=== PATIENT | female | born 1990 | race Caucasian/White ===

== ENCOUNTER 2018-06-10 12:18 | Inpatient (IN) | payer OTHER ==
--- OUTSIDE RECORDS SUMMARY | 2018-06-10 14:42 | XMS REPORT ---
:1990 Author Organization [employer] Care Team Providers Name Role Phone Ellis Watkins Provider Role Unavailable Allergies No Known Allergies Problems Problem Type Condition Code Onset Dates Condition Status Problem Encounter for supervision of Z34.91 Active low-risk in first trimester Problem Fragile X syndrome in heterozygous Q87.89 Active female Problem Nausea and vomiting during O21.9 Active Problem Supervision of high risk O09.93 Active in third trimester Problem Gestational diabetes mellitus (GDM) O24.415 Active in third trimester controlled on oral hypoglycemic drug Problem Edema during in third O12.03 Active trimester Problem 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 Problem Encounter for supervision of other Z34.82 Active normal in second trimester Problem Uterine size-date discrepancy in O26.843 Active third trimester Problem History of tobacco use Z87.891 Active Assessment Fragile X syndrome in heterozygous Q87.89 Active female Assessment Gestational diabetes mellitus (GDM) O24.415 Active in third trimester controlled on oral hypoglycemic drug Assessment Supervision of high risk O09.93 Active in third trimester Assessment History of tobacco use Z87.891 Active Assessment Uterine size-date discrepancy in O26.843 Active third trimester Problem Amenorrhea N91.2 Active Medications Medication Code Code Instructions Start End Status Dosage System Date Date Vitafol [facility] 61186379080 3.33-0.333-34.8 December 12, Active 3 tablets Gummies MG Orally Once a 2018 day Diclegis [facility] 24118649400 10-10 MG Orally December 12, Active 2 tablets Once a day 2018 at bedtime on an empty stomach GlyBURIDE [facility] [id number] 2.5 MG Orally Active 1 tablet Once a day at bedtime Results No Known Results Summary Purpose eClinicalWorks Submission
--- OUTSIDE RECORDS SUMMARY | 2018-06-10 14:42 | XMS REPORT ---
:1990 Author Organization [employer] Care Team Providers Name Role Phone Ellis Watkins Provider Role Unavailable Allergies No Known Allergies Problems Problem Type Condition Code Onset Dates Condition Status Problem Encounter for supervision of Z34.91 Active low-risk in first trimester Problem Fragile X syndrome in heterozygous Q87.89 Active female Problem Nausea and vomiting during O21.9 Active Problem Amenorrhea N91.2 Active Problem Supervision of high risk O09.93 [...] Problem History of tobacco use Z87.891 Active Medications No Known Medications Results No Known Results Summary Purpose [employer]Works Submission
--- OUTSIDE RECORDS SUMMARY | 2018-06-10 14:43 | XMS REPORT ---
:1990 Author Organization [employer] Care Team Providers Name Role Phone Ellis Watkins Provider Role Unavailable Allergies No Known Allergies Problems Problem Type Condition Code Onset Dates Condition Status Problem Nausea and vomiting during O21.9 Active Problem Encounter for supervision of other Z34.82 Active normal in second trimester Problem Fragile X syndrome in heterozygous Q87.89 Active female Problem Edema during in third O12.03 Active trimester Problem Supervision of high risk O09.93 Active in third trimester Problem Need for Tdap vaccination Z23 Active Problem History of tobacco use Z87.891 Active Problem 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 Problem Gestational diabetes mellitus (GDM) O24.415 Active in third trimester controlled on oral hypoglycemic drug Problem Uterine size-date discrepancy in O26.843 Active third trimester Assessment History of tobacco use Z87.891 Active Assessment Uterine size-date discrepancy in O26.843 Active third trimester Assessment Fragile X syndrome in heterozygous Q87.89 Active female Assessment Need for Tdap vaccination Z23 Active Assessment Gestational diabetes mellitus (GDM) O24.415 Active in third trimester controlled on oral hypoglycemic drug Problem Encounter for supervision of Z34.91 Active low-risk in first trimester Assessment Supervision of high risk O09.93 Active in third trimester Problem Amenorrhea N91.2 Active Medications Medication Code Code Instructions Start End Status Dosage System Date Date Diclegis [facility] [id number] 10-10 MG Orally December 12, Active 2 tablets Once a day 2018 at bedtime on an empty stomach GlyBURIDE [facility] 53678955218 2.5 MG Orally Active 1 tablet Once a day at bedtime Vitafol [facility] [id number] 3.33-0.333-34.8 December 12, Active 3 tablets Gummies MG Orally Once a 2018 day Results No Known Results Immunizations Vaccine Administration Date TDAP > 7 Years-Adacel May 30, 2018 Summary Purpose eClinicalWorks Submission
--- OUTSIDE RECORDS SUMMARY | 2018-06-10 14:43 | XMS REPORT ---
[...] syndrome in heterozygous Q87.89 Active female Assessment History of tobacco use Z87.891 Active Assessment Supervision of high risk O09.93 Active in third trimester Assessment Uterine size-date discrepancy in O26.843 Active third trimester Problem Encounter for supervision of Z34.91 Active low-risk in first trimester Assessment Gestational diabetes mellitus (GDM) O24.415 Active in third trimester controlled on oral hypoglycemic drug Problem Amenorrhea N91.2 Active Medications Medication Code Code Instructions Start End Status Dosage System Date Date Vitafol [facility] [id number] 3.33-0.333-34.8 December 12, Active 3 tablets Gummies MG Orally Once a 2018 day GlyBURIDE [facility] [id number] 2.5 MG Orally Active 1 tablet Once a day at bedtime Diclegis [facility] [id number] 10-10 MG Orally December 12, Active 2 tablets Once a day 2018 at bedtime on an empty stomach Results No Known Results Summary Purpose eClinicalWorks Submission
[2018-06-10] MEDS ORDERED: BUTORPHANOL 1 MG/ML INJ IV PRN (14:45)
[2018-06-10] MEDS ORDERED: Ringers Lactate 1,000 ML IV PRN (14:45)
[2018-06-10] MEDS ORDERED: METHYLERGONOVINE 0.2MG/ML AMP IM PRN (14:45)
[2018-06-10] MEDS ORDERED: CARBOPROST TROME 250 MCG/ML IM PRN (14:45)
[2018-06-10] MEDS ORDERED: OXYTOCIN/LR 20 UNIT/1,000 ML BAG IV SCH (15:00)
[2018-06-10] MEDS ORDERED: Ringers Lactate 1,000 ML IV SCH (15:00)
[2018-06-10 15:41] VITALS: BMI 20.2
[2018-06-10 15:42] LABS: RPR Titer ND
[2018-06-10 15:53] LABS: Absolute Lymphocytes (CBC) 1.4 K/uL (0.7-4.9); Absolute Monocytes 0.5 K/uL (0.1-1.3); Absolute Neutrophil 6.7 K/uL (1.8-8.0); Basophils % 0.2 % (0-1.3); Eosinophils % 0.1 % (0-4.4); Hematocrit 25.2 % (36.0-45.0); Lymphocytes % 15.8 % (15.3-44.8); MCH 27.8 pg (27.0-35.0); MPV 6.9 fL (7.6-11.3); Monocytes % 6.3 % (3.3-12.3); RBC Red Blood Cell Count 3.07 M/uL (3.86-4.86)
[2018-06-10 16:01] LABS: Urine Appearance CLOUDY; Urine Bilirubin NEGATIVE (NEG); Urine Blood NEGATIVE (NEG); Urine Color YELLOW; Urine Glucose NEGATIVE (NEG); Urine Protein NEGATIVE (NEG); Urine Urobilinogen 0.2 mg/dL (0.2-1.0)
[2018-06-10 16:05] LABS: Urine Microscopic Reflex ORDER UMIC
[2018-06-10] MEDS ORDERED: ROPIVACAINE HCL 100 ML IV PRN (16:06)
[2018-06-10] MEDS ORDERED: FENTANYL CITR 100 MCG/2 ML IV ONE (16:06)
[2018-06-10] MEDS ORDERED: ROPIVACAINE HCL 0.2% 20ML AMP IV ONE (16:10)
[2018-06-10 16:15] LABS: Urine Bacteria >50 /HPF (<20); Urine Culture Reflex Order REFLEXED; Urine RBC <5 /HPF (NONE SEEN)
[2018-06-10] MEDS ORDERED: 0.2% ROPIVACAINE (200 MG/100 ML) BAG IV ONE (17:00)
[2018-06-10] MEDS ORDERED: INFLUENZA VACCINE (for 3y+) 0.5 ML DOSE IMVAC ONE (17:00)
[2018-06-10] MEDS ORDERED: ONDANSETRON 4 MG (ODT) TAB PO PRN (20:46)
[2018-06-10] MEDS ORDERED: Oxycodone HCl/Acetaminophen 1 TAB TAB PO PRN (20:46)
[2018-06-10] MEDS ORDERED: ACETAMINOPHEN 500 MG TAB PO PRN (20:46)
[2018-06-10] MEDS ORDERED: IBUPROFEN 200 MG TAB PO PRN (20:46)
[2018-06-10] MEDS ORDERED: METHYLERGONOVINE 0.2 MG TAB PO PRN (20:46)
[2018-06-10] MEDS ORDERED: DOCUSATE NA/SENNA CONC 1 TAB PO PRN (20:46)
[2018-06-10] MEDS ORDERED: BISACODYL 10 MG RECTAL SUPP RECT PRN (20:46)
[2018-06-10] MEDS ORDERED: METOCLOPRAMIDE 10 MG/2mL INJ IV PRN (20:49)
--- NOTE | 2018-06-10 20:51 | P.OP ---
Date of Service: 06/10/18 Findings and Operative Technique Patient delivered a viable female in cephalic presentation on 06/10/18 at 20:30 via vacuum assisted vaginal delivery due to bradycardia and poor maternal effort. Infant was delivered in OA presentation over a midline episiotomy. Once was delivered nose and mouth were suctioned with a suction bulb cord was clamped and cut and infant was placed on mother's abdomen for skin to skin bonding. Attention was then turned to the placenta which was delivered with gentle traction at 20:31. Placenta was examined and noted to be intact. Attention was then turned to the midline episiotomy. This was repaired with a 2 0 Vicryl in usual fashion noted to be second-degree laceration. Fundus was found to be firm estimated blood loss was 200 cc. Both mom and baby are doing well 9 and 9. Weight was 5 lb 9 oz. 1st stage of labor was 2 hr and 53 min. 2nd stage was 20 min.
[2018-06-11] MEDS: Oxycodone HCl/Acetaminophen 1 TAB TAB PO PRN ×2 (00:30→07:20)
--- NOTE | 2018-06-11 03:34 | HP ---
Date of Admission: 06/10/2018 History Of Present Illness: Umu is 28-year-old, 2, para 1-0-0-1 at 38 weeks' gestation with care complicated by gestational diabetes, intrauterine growth restriction. She is a fr agile X carrier. She was seen by MFM today and after not going for 2 months and was found to h ave decreased elevated Doppler flow and intrauterine growth restriction. Therefore, decision was mad e by MFM that patient needs to be induced today. Therefore, she presented to Labor and Delivery with some irregular contractions. No leakage of fluid. Reports positive movements, is to be induc ed today. GBS is negative. She has received her Tdap vaccine. See record for further deta ils. Past Medical History: Includes fragile X carrier, history of tobacco abuse, gestational diabetes. Past Surgical History: Negative. Social History: She states she is no longer smoking. Drug screens have been negative. She is marri ed to the father of the baby. No other issues. Family History: Noncontributory. Physical Examination: Vital Signs: On admission are blood pressure of 136/82, pulse of 73, respirations 18, temperature 97 .9. General: The patient is resting comfortably in bed. Head and Neck: Normocephalic, atraumatic. Neck: Supple. Respiratory: Symmetric, nonlabored breathing. Abdomen: Gravid, measuring very small. Extremities: Bilateral lower extremities, no clubbing, cyanosis, or edema. Vaginal: Normal external female genitalia. Vagina is pink and moist. 3 cm dilated, 60% effaced, -2 station. Vertex presentation. heart rate category 2 tracing. Baseline heart rate is 1 30. TOCO irregular contractions. Pitocin is being started. GBS is negative. Laboratory Data: White blood cell count 8.6, hemoglobin 8.6, hematocrit 25.2, platelet count is 277. Urine protein is negative. She is Rh positive. Assessment And Plan: Umu is a 28-year-old, 2, para 1-0-0-1 at 38 weeks' gestation who p resents for induction of labor due to intrauterine growth restriction. Pitocin has been started and rupture of membranes is going to be performed. The patient desires epidural, will be placed at patie nt's request. GBS is negative. Anticipate vaginal . CHLOE Voice ID: [id number]
[2018-06-11 03:36] LABS: RPR (Rapid Plasma Reagin) NON-REACT (NON-REACT)
[2018-06-11 05:16] LABS: Absolute Lymphocytes (CBC) 1.8 K/uL (0.7-4.9); Absolute Monocytes 0.6 K/uL (0.1-1.3); Absolute Neutrophil 7.3 K/uL (1.8-8.0); Basophils % 0.2 % (0-1.3); Eosinophils % 0.1 % (0-4.4); Hematocrit 27.2 % (36.0-45.0); Lymphocytes % 18.5 % (15.3-44.8); MCH 28.5 pg (27.0-35.0); MCV 80.8 fL (80-100); MPV 6.8 fL (7.6-11.3); Monocytes % 6.6 % (3.3-12.3); RBC Red Blood Cell Count 3.36 M/uL (3.86-4.86)
[2018-06-11] MEDS ORDERED: INFLUENZA VACCINE (for 3y+) 0.5 ML DOSE IMVAC ONE (18:52)
[2018-06-12 07:20] VITALS: BP 145/85; TEMP 98.3
[2018-06-13 03:42] LABS: HBsAG Nonreactive (Nonreactive)
== END 2018-06-12 07:55 | disposition home or self-care (01) | DRG 807 ==
LOC: 2ND-WC 14:40
PROVIDERS: ADMIT Student in an Organized Health Care Education/Training Program; ATTEND Student in an Organized Health Care Education/Training Program
PROC: 10907ZC Drainage of Amniotic Fluid, Therapeutic from Products of Conception, Via Natural or Artificial Opening (ICD-10-PCS; principal; 2018-06-10)
PROC: 10D07Z6 Extraction of Products of Conception, Vacuum, Via Natural or Artificial Opening (ICD-10-PCS; 2018-06-10)
PROC: 0KQM0ZZ Repair Perineum Muscle, Open Approach (ICD-10-PCS; 2018-06-10)
PROC: 3E033VJ Introduction of Other Hormone into Peripheral Vein, Percutaneous Approach (ICD-10-PCS; 2018-06-10)
PROC: 0W8NXZZ Division of Female Perineum, External Approach (ICD-10-PCS; 2018-06-10)
DX: O36.5930 Maternal care for other known or suspected poor fetal growth, third trimester, not applicable or unspecified (principal); Z37.0 Single live birth; O24.419 Gestational diabetes mellitus in pregnancy, unspecified control; O76 Abnormality in fetal heart rate and rhythm complicating labor and delivery; O70.1 Second degree perineal laceration during delivery; Z3A.38 38 weeks gestation of pregnancy; Z87.891 Personal history of nicotine dependence
CPT/HCPCS: 36415; 81003; 81015; 85025; 86592; 86850; 86900; 86901; 87086; 87088; 87340; 88307; J2210; J2590; J2795; J3010; Q2035